=== PATIENT | female | born 1950 | race Caucasian/White ===

== ENCOUNTER → 2018-07-06 13:44 | Outpatient (CLI) | payer MEDICARE, OTHER, SELFPAY ==
--- NOTE | 2018-07-06 14:00 | XR_ITS ---
XR chest 2V HISTORY: Shortness of air, hypertension, current smoker ITS.REASON: . ORDERING PHYSICIAN: Tyson Rodriguez MD PATIENT AGE: 67 years COMPARISON: None FINDINGS: The cardiomediastinal silhouette and pulmonary vascularity are within normal limits. There is coarsening of the bronchovascular markings suggesting chronic peribronchial inflammatory change/smoking-related lung disease with some minimal interstitial markings noted in the left lung base. Coronary artery calcifications are noted. No effusions or infiltrates. No acute bony anomalies. IMPRESSION: COPD with mild prominence of interstitial markings in the lower lobes Coronary artery calcifications suggest coronary artery disease
[2018-07-06 14:23] LABS: Basophils # 0.1 K/mm3 (0-0.2); Basophils % 0.4 % (0.1-2.0); Eosinophils # 0.1 K/mm3 (0.0-0.4); Eosinophils % 0.9 % (0.1-12.0); Hematocrit 43.8 % (37.0-47.0); Hemoglobin 14.4 g/dL (12.2-16.2); Lymphocytes # 3.7 K/mm3 (0.7-4.5); Mean Corpuscular HGB Conc 32.8 g/dL (31.8-35.4); Mean Corpuscular Hemoglobin 28.4 pg (27.0-31.2); Mean Corpuscular Volume 86.7 fl (81-99); Mean Platelet Volume 6.7 fl (7.4-10.4); Monocytes # 0.7 K/mm3 (0.1-1.0); Monocytes % 5.1 % (1.7-9.3); Neutrophils # 9.2 K/mm3 (1.8-7.8); Neutrophils % 66.6 % (37.0-80.0); Platelet Count 309 K/mm3 (142-424); Red Blood Count 5.06 M/mm3 (4.20-5.40); Red Cell Distribution Width 14.7 % (11.5-17.5); White Blood Count 13.7 K/mm3 (4.8-10.8)
[2018-07-06 15:45] LABS: Blood Urea Nitrogen 11 mg/dL (7-18); Carbon Dioxide 27 mmol/L (21.0-32.0); Chloride 100 mmol/L (98-107); Creatinine,Serum 0.81 mg/dL (0.55-1.02); Estimated Glomerular Filt Rate 71 ml/min (>60); GFR (African American) 86 ML/MIN (>60); Sodium 138 mmol/L (136-145); Thyroid Stimulating Hormone 2.49 uIU/ml (0.358-3.740)
[2018-07-06 16:22] LABS: Glucose 141 mg/dL (74-106)
== END ==
PROVIDERS: Visit Provider Internal Medicine
DX: E11.9 Type 2 diabetes mellitus without complications (principal); E78.5 Hyperlipidemia, unspecified; I11.9 Hypertensive heart disease without heart failure; I20.9 Angina pectoris, unspecified; I44.7 Left bundle-branch block, unspecified; F17.200 Nicotine dependence, unspecified, uncomplicated; Z79.4 Long term (current) use of insulin
CPT/HCPCS: 36415; 71046; 80048; 84439; 84443; 85025

== ENCOUNTER → 2018-07-06 14:14 | Outpatient (CLI) | payer MEDICARE, OTHER, SELFPAY ==
--- NOTE | 2018-07-06 14:21 | CA_ITS ---
PROCEDURE: 2-D M-mode and color Doppler study INDICATIONS FOR THE TEST: Chest pain + COPD Heart Murmur Tobacco Smoking+ Palpitations Fatigue Syncope Edema Hypertension+Diabetes Mellitus+ Rheumatic Fever SOB+CHAO Obesity Hyperlipidemia+ Family History HD Additional History CAD,CHF PATIENT INFORMATION HEIGHT: 61 WEIGHT:156 GENDER: Female B/P:119/82 2-D/M-MODE INTERPRETATION: 2-D MEASUREMENTS OBSERVED VALUES IN CMS Right Ventricular Dimension (RVDd) 2.0 Interventricular Septum (Thickness)(IVsd) 0.7 Left Ventricular Internal Dimensions(LVIDd) 4.4 Left Ventricular Posterior Wall (Thickness)(LVPWd) 0.8 Aortic Root 2.3 Aortic Cusp Separation 1.8 Left Atrial Dimensions (LAD) 2.9 2D 1. Left atrium is mildly enlarged, left ventricle is normal size, there is mild concentric left ventricular hypertrophy, visually estimated ejection fraction 55% with no regional wall motion abnormality. 2. The right atrium and right ventricle are normal size and contractility. 3. The aortic valve is thickened and calcified leaflet continue to display good mobility. 4. The mitral and tricuspid valvular grossly normal. 5. The pulmonic valve is poorly visualized. 6. No significant pericardial effusion noted. DOPPLER INTERROGATION: Doppler interrogation of the aortic, mitral and tricuspid valvular presence of mild mitral and tricuspid regurgitation, tricuspid regurgitation jet velocity is inadequate for calculation of the right ventricular systolic pressure, Doppler evidence of impaired LV relaxation seen. Tissue Doppler is inconclusive CONCLUSION: 1. Mildly enlarged left atrium, normal left ventricular size, mild concentric left ventricular hypertrophy, visually estimated ejection fraction 55% with no regional wall motion abnormality, Doppler evidence of impaired LV relaxation seen, tissue Doppler is inconclusive. 2. Mild mitral and tricuspid regurgitation 3. No significant pericardial effusion noted.
== END ==
PROVIDERS: PCP Family Medicine; Visit Provider Internal Medicine
DX: E11.9 Type 2 diabetes mellitus without complications (principal); E78.5 Hyperlipidemia, unspecified; I11.9 Hypertensive heart disease without heart failure; I20.9 Angina pectoris, unspecified; I44.7 Left bundle-branch block, unspecified; Z79.4 Long term (current) use of insulin
CPT/HCPCS: 36415; 71046; 80048; 84439; 84443; 85025; 93306

== ENCOUNTER → 2019-06-28 11:11 | Outpatient (CLI) | payer MEDICARE, OTHER, SELFPAY ==
--- NOTE | 2019-06-28 11:13 | US_ITS ---
APPROVED REPORT Exam Type: Ankle to Brachial Index Financial Advisor Trainee: Jocelin Mcdonald RDCS Indications Claudication: Numbness/Tingling Current Smoker CAD Risk Factors Hyperlipidemia Diabetes Current Smoker Pressures/Indices Right Indices Left Indices Brachial 123.00 mmHg Brachial 124.00 mmHg Low Thigh 130.00 mmHg 1.05 Low Thigh 117.00 mmHg 0.94 Calf 131.00 mmHg 1.06 Calf 119.00 mmHg 0.96 Ankle(PT) 145.00 mmHg 1.17 Ankle(PT) 132.00 mmHg 1.06 Ankle(DP) 142.00 mmHg 1.15 Ankle(DP) 116.00 mmHg 0.94 Digit 77.00 mmHg 0.62 Digit 74.00 mmHg 0.60 Findings R ZEYAD 1.2 L ZEYAD 1.1 R TBI 0.6 L TBI 0.6 NORMAL PULSES NORMAL WAVEFORMS Conclusion No evidence significant arterial disease throughout the right and left lower extremities as evidenced by normal resting PVR waveforms and normal resting indices. Electronically signed by : Karri Gan MD 06/28/2019 20:24:02
--- NOTE | 2019-06-28 11:13 | CA_ITS ---
APPROVED REPORT EXAM: Comprehensive 2D, Doppler, and color-flow Echocardiogram Vending Service Technician: Nell Estrada CRT Ht: 5 ft 1 in Wt: 155lbs BSA: 1.69 BP: 119/82 mmHg Indications: htn, dm, smoker, sob, hld 2D Dimensions LVOT 1.83 cm (M/F) 1.5-2.5 M-Mode Dimensions RVDd 2.25 cm (0.9-2.6) LVDd 3.88 cm (3.5-5.7) LVDs 2.85 cm (3.5-5.7) IVSd 1.35 cm (0.6-1.1) PWd 0.47 cm (0.6-1.1) EF (Teich) 52.50% FS 26.50% EDV (Teich) 65.10 mL ESV (Teich) 30.90 mL LV Diastology E/A Ratio 0.70 Mitral Valve MV A Velocity 93.00 (40-130 cm/s) Left Ventricle Left atrium is mildly enlarged, left ventricle is normal size, mild concentric left ventricular hypertrophy, visually estimated ejection fraction 55% with no regional wall motion abnormality. Grade 1 diastolic dysfunction seen without tissue Doppler evidence of raise left atrial pressure. Right Ventricle Right atrium and right ventricular normal size and contractility. Aortic Valve Aortic valve is minimally thickened and fibrosed. There is no aortic stenosis or aortic insufficiency. Mitral Valve Mitral valve is grossly normal, there is mild mitral regurgitation. Tricuspid Valve Tricuspid valve is grossly normal, there is mild tricuspid regurgitation. Pulmonic Valve Pulmonic valve is poorly visualized. Great Vessels Aortic root is normal size. Pericardium No significant pericardial effusion noted. Conclusion 1. Mildly enlarged left atrium, normal left ventricular size, mild concentric left ventricular hypertrophy, visually estimated ejection fraction 55% with no regional wall motion abnormality, grade 1 diastolic dysfunction seen without tissue Doppler evidence of raise left atrial pressure. 2. Mild mitral and tricuspid regurgitation. 3. No significant pericardial effusion noted. Electronically signed by : Christopher Conn, 06/29/2019 07:00:36
--- NOTE | 2019-06-28 12:02 | XR_ITS ---
PROCEDURE: XR CHEST 2V CLINICAL HISTORY: chest pain,smoker Coronary artery disease, chest pain COMPARISON: CXR2V XR chest 2V from 07/06/2018 FINDINGS: The cardiomediastinal silhouette and pulmonary vascularity are within normal limits. Coarsened bronchovascular markings are noted which may be seen with smoking related lung disease. No lobar consolidation or collapse. No acute bony abnormalities. IMPRESSION: Coarsened bronchovascular markings otherwise negative Dictated by: Karri Gan MD 06/28/2019 18:26 Electronically signed by Karri Gan MD in [place] 06/28/2019 18:26
== END ==
PROVIDERS: Visit Provider Internal Medicine
DX: R06.00 Dyspnea, unspecified (principal); R06.01 Orthopnea; R06.02 Shortness of breath; I73.9 Peripheral vascular disease, unspecified; I11.9 Hypertensive heart disease without heart failure; I20.9 Angina pectoris, unspecified
CPT/HCPCS: 71046; 93306; 93923

== ENCOUNTER 2023-10-08 08:01 | Outpatient (CLI) | payer MEDICARE, OTHER, SELFPAY ==
--- NOTE | 2023-10-08 08:02 | CA_ITS ---
APPROVED REPORT EXAM: Comprehensive 2D, Doppler, and color-flow Echocardiogram Seam Steamer: Nell Estrada CRT Ht: 5 ft 1 in Wt: 164lbs BSA: 1.74 BP: 138/81 mmHg Indications: Chest Pain, Shortness of Breath, Diabetes, Fatigue, Hyperlipidemia, Hypertension/HDD, Smoker 2D Dimensions LA Volume 30.70 mL LA Volume Index 17.20 mL/m2 (M/F) 16-34 M-Mode Dimensions RVDd 1.97 cm (0.9-2.6) LA Diam 2.30 cm (1.9-4.0) LVDd 3.40 cm (3.5-5.7) LVDs 2.46 cm (3.5-5.7) IVSd 1.65 cm (0.6-1.1) PWd 0.78 cm (0.6-1.1) EF (Teich) 54.90% FS 27.60% EDV (Teich) 47.40 mL TAPSE 1.58 (<1.7) ESV (Teich) 21.40 mL LV Diastology MED A' 13.40 cm/s LAT A' 15.30 cm/s Aortic Valve AO Peak GR. 6.90 mmHg Pulmonary Valve PV Peak Velocity 158.0 (50-150 cm/s) Tricuspid Valve TR P. Velocity 134.00 cm/s RAP Estimate 10.00 mmHg RVSP 17.20 mmHg Left Ventricle The left ventricle is normal size. The left ventricular systolic function is normal. LV wall thickness. Septum is asynchronous. Transmitral Doppler flow pattern suggests impaired LV relaxation. LVEF is 55%. Right Ventricle The right ventricle is normal size. The right ventricular systolic function is normal. Atria The left atrium size is normal. The right atrium size is normal. There is no Doppler evidence of interatrial shunt. Aortic Valve The aortic valve is mildly thickened. There is no aortic valvular stenosis. No aortic regurgitation is present. Mitral Valve The mitral valve is normal in structure. No evidence of mitral valve stenosis. There is no mitral valve regurgitation noted. Tricuspid Valve The tricuspid valve leaflets are thin and pliable. Trace tricuspid regurgitation. There is insufficient TR jet to estimate RVSP. Pulmonic Valve The pulmonary valve is grossly normal in structure. Trace pulmonic regurgitation. Great Vessels The aortic root is normal in size. The ascending aorta is normal in size. IVC is normal in size and collapses >50% with inspiration. Pericardium There is no pericardial effusion. Other Information Study Quality: Fair Conclusion Normal biventricular systolic function. Asynchronous septum. No significant valvular stenosis or regurgitation. Electronically signed by : Rosy Dias MD 10/09/2023 22:38:05
== END 2023-10-08 23:59 | disposition home or self-care (01) ==
LOC: RT 08:02
PROVIDERS: Visit Provider Internal Medicine
DX: R06.02 Shortness of breath (principal); R06.00 Dyspnea, unspecified; I11.9 Hypertensive heart disease without heart failure; I25.10 Atherosclerotic heart disease of native coronary artery without angina pectoris; R06.01 Orthopnea; E78.49 Other hyperlipidemia; F17.210 Nicotine dependence, cigarettes, uncomplicated
CPT/HCPCS: 93306

== ENCOUNTER 2023-10-13 12:34 | Outpatient (CLI) | payer MEDICARE, OTHER, SELFPAY ==
[2023-10-13 13:00] LABS: Basophils # 0.1 K/mm3 (0-0.2); Basophils % 1.1 % (0.1-2.0); Eosinophils # 0.2 K/mm3 (0.0-0.4); Eosinophils % 1.5 % (0.1-12.0); Hemoglobin 14.6 g/dL (12.2-16.2); Lymphocytes # 4.2 K/mm3 (0.7-4.5); Mean Corpuscular HGB Conc 41.9 g/dL (31.8-35.4); Mean Corpuscular Hemoglobin 37.3 pg (27.0-31.2); Mean Corpuscular Volume 89.2 fl (81-99); Mean Platelet Volume 7.6 fl (7.4-10.4); Monocytes # 0.6 K/mm3 (0.1-1.0); Monocytes % 4.7 % (1.7-9.3); Neutrophils # 6.9 K/mm3 (1.8-7.8); Neutrophils % 57.7 % (37.0-80.0); Platelet Count 250 K/mm3 (142-424); Red Blood Count 3.92 M/mm3 (4.20-5.40); Red Cell Distribution Width 15.4 % (11.5-17.5)
[2023-10-13 13:40] LABS: Alanine Aminotransferase 36 U/L (12-78); Albumin Level 4.2 g/dl (3.5-5.0); Alkaline Phosphatase 154 U/L (38-126); Anion Gap 14.2 mEq/L (5-15); Aspartate Amino Transferase 27 U/L (14-36); Bilirubin,Direct 0.1 mg/dl (0.0-0.4); Bilirubin,Indirect 0.3 mg/dL (0.0-0.9); Bilirubin,Total 0.4 mg/dl (0.2-1.3); Bilirubin,Unconjugated 0.3 mg/dL (0.0-1.1); Blood Urea Nitrogen 9 mg/dl (7-17); Calcium 9.3 mg/dl (8.4-10.2); Carbon Dioxide 25 mmol/L (22.0-30.0); Chloride 104 mmol/L (98-107); Cholesterol 172 mg/dl (140-200); Estimated Glomerular Filt Rate 121 ml/min (>60); GFR (African American) 147 ML/MIN (>60); Glucose 121 mg/dl (74-100); HDL Cholesterol 43 mg/dl (40-60); Potassium 4.2 mmoL/L (3.5-5.1); Sodium 139 mmol/L (136-145); Total Protein,Serum 7.4 g/dl (6.3-8.2); Triglycerides 268 mg/dl (30-150); VLDL Cholesterol 54 mg/dL (0-40)
[2023-10-13 13:52] LABS: Direct LDL Cholesterol 99.46 mg/dL (100-129)
[2023-10-13 13:58] LABS: Free T4 (Free Thyroxine) 0.95 ng/dl (0.78-2.19)
[2023-10-13 14:10] LABS: Thyroid Stimulating Hormone 2.72 uIU/mL (0.465-4.68)
[2023-10-21 09:13] LABS: 1,25 Dihydroxy Vitamin D 66 pg/mL (.); 1,25-Dihydroxy, Vitamin D-2 34 pg/mL (.); 1,25-Dihydroxy, Vitamin D-3 32 pg/mL (.)
== END 2023-10-13 23:59 | disposition home or self-care (01) ==
LOC: LAB 12:35
PROVIDERS: Visit Provider Internal Medicine
DX: F17.200 Nicotine dependence, unspecified, uncomplicated (principal); I10 Essential (primary) hypertension; E11.9 Type 2 diabetes mellitus without complications; Z79.4 Long term (current) use of insulin; I25.10 Atherosclerotic heart disease of native coronary artery without angina pectoris; I11.9 Hypertensive heart disease without heart failure; R06.02 Shortness of breath; R06.00 Dyspnea, unspecified; R06.01 Orthopnea; E78.5 Hyperlipidemia, unspecified; K21.9 Gastro-esophageal reflux disease without esophagitis; E78.49 Other hyperlipidemia; E67.3 Hypervitaminosis D; Z79.899 Other long term (current) drug therapy
CPT/HCPCS: 36415; 80048; 80061; 80076; 82652; 84439; 84443; 85025

== ENCOUNTER 2023-10-29 11:48 | Outpatient (CLI) | payer MEDICARE, OTHER, SELFPAY ==
[2023-10-29] MEDS: INCLISIRAN SODIUM 284 MG/1.5 ML SYRINGE SQ (12:08)
[2023-10-29 12:24] VITALS: BP 160/79; PULSE 75; RESP 18; O2SAT 94
== END 2023-10-29 12:24 | disposition home or self-care (01) ==
LOC: INF 11:50
PROVIDERS: PCP Family Medicine; Visit Provider Internal Medicine
DX: E78.5 Hyperlipidemia, unspecified (principal)
CPT/HCPCS: 96372; J1306

== ENCOUNTER 2023-11-17 13:01 | Outpatient (CLI) | payer MEDICARE, OTHER, SELFPAY ==
--- NOTE | 2023-11-17 13:12 | XR_ITS ---
FINAL REPORT CLINICAL HISTORY: Foot Pain COMPARISON: None FINDINGS: RIGHT FOOT 3 views of the right foot were obtained. There is no acute fracture or dislocation. There are moderate to severe degenerative changes at the first MTP joint. Moderate hallux valgus deformity is noted. Soft tissues are unremarkable. IMPRESSION: Moderate to severe degenerative changes. Moderate hallux valgus deformity. Reviewed, Interpreted and Dictated by Gordo Lopez MD Transcribed by [facility] Authenticated and [facility]
--- NOTE | 2023-11-17 13:12 | XR_ITS ---
FINAL REPORT CLINICAL HISTORY: Foot Pain COMPARISON: None FINDINGS: LEFT FOOT Three views of the left foot demonstrate no acute fracture or dislocation. There are advanced degenerative changes of the first MTP joint. The soft tissues are unremarkable. IMPRESSION: Advanced degenerative changes. Reviewed, Interpreted and Dictated by Gordo Lopez MD Transcribed by [facility] Authenticated and [facility]
== END 2023-11-17 23:59 | disposition home or self-care (01) ==
LOC: RAD 13:03
PROVIDERS: PCP Family Medicine; Visit Provider Internal Medicine
DX: M79.671 Pain in right foot (principal); M79.672 Pain in left foot
CPT/HCPCS: 73630

== ENCOUNTER 2023-12-21 13:01 | Outpatient (CLI) | payer MEDICARE, OTHER, SELFPAY ==
--- NOTE | 2023-12-21 13:05 | US_ITS ---
FINAL REPORT CLINICAL HISTORY: DECREASED PEDAL PULSES,SMOKER,HTN,HLD,DM,CLAUDICATION,REST PAIN,CAD COMPARISON: 06/28/2019 FINDINGS: ANKLE-BRACHIAL PRESSURE INDICES Pressure indices are as follows: RIGHT LOWER EXTREMITY: Ankle-brachial pressure index: 1.2 Comments: Normal LEFT LOWER EXTREMITY: Ankle-brachial pressure index: 1.2 Comments: Normal IMPRESSION: No evidence of significant obstructive peripheral vascular disease of the lower extremities Reviewed, Interpreted and Dictated by Desirae Kirk MD Transcribed by [facility] Authenticated and [facility]
== END 2023-12-21 23:59 | disposition home or self-care (01) ==
LOC: RT 13:02
PROVIDERS: PCP Podiatrist; Visit Provider Podiatrist
DX: R09.89 Other specified symptoms and signs involving the circulatory and respiratory systems (principal)
CPT/HCPCS: 93923

== ENCOUNTER 2024-02-01 11:32 | Outpatient (CLI) | payer MEDICARE, OTHER, SELFPAY ==
[2024-02-01 11:49] VITALS: BP 119/71; PULSE 75; RESP 16; TEMP 36.4; O2SAT 95
[2024-02-01] MEDS: INCLISIRAN SODIUM 284 MG/1.5 ML SYRINGE SQ (11:49)
== END 2024-02-01 12:05 | disposition home or self-care (01) ==
LOC: INF 11:35
PROVIDERS: PCP Family Medicine; Visit Provider Internal Medicine
DX: E78.5 Hyperlipidemia, unspecified (principal)
CPT/HCPCS: 96372; J1306

== ENCOUNTER 2024-07-19 12:14 | Outpatient (CLI) | payer MEDICARE, SELFPAY ==
[2024-07-19 12:41] LABS: Basophils # 0.1 K/mm3 (0-0.2); Basophils % 0.4 % (0.1-2.0); Eosinophils # 0.1 K/mm3 (0.0-0.4); Hematocrit 43.5 % (37.0-47.0); Hemoglobin 14.5 g/dL (12.2-16.2); Lymphocytes # 3.8 K/mm3 (0.7-4.5); Lymphocytes % 33.7 % (10-50); Mean Corpuscular HGB Conc 33.3 g/dL (31.8-35.4); Mean Corpuscular Hemoglobin 28.4 pg (27.0-31.2); Mean Corpuscular Volume 85.3 fl (81-99); Mean Platelet Volume 8.6 fl (7.4-10.4); Monocytes # 0.6 K/mm3 (0.1-1.0); Monocytes % 5.6 % (1.7-9.3); Neutrophils # 6.7 K/mm3 (1.8-7.8); Platelet Count 403 K/mm3 (142-424); Red Cell Distribution Width 14.5 % (11.5-17.5); White Blood Count 11.4 K/mm3 (4.8-10.8)
[2024-07-19 13:05] LABS: Alanine Aminotransferase 24 U/L (12-78); Albumin Level 4.1 g/dl (3.5-5.0); Alkaline Phosphatase 155 U/L (38-126); Anion Gap 7.9 mEq/L (5-15); Aspartate Amino Transferase 22 U/L (14-36); Bilirubin,Direct 0.2 mg/dl (0.0-0.4); Bilirubin,Indirect 0.1 mg/dL (0.0-0.9); Bilirubin,Total 0.3 mg/dl (0.2-1.3); Bilirubin,Unconjugated 0.1 mg/dL (0.0-1.1); Blood Urea Nitrogen 6 mg/dl (7-17); Calcium 9.2 mg/dl (8.4-10.2); Carbon Dioxide 26 mmol/L (22.0-30.0); Chloride 105 mmol/L (98-107); Chol/HDL Ratio 2.8 (1-3.5); Cholesterol 123 mg/dl (140-200); Estimated Glomerular Filt Rate 98 ml/min (>60); GFR (African American) 119 ML/MIN (>60); Glucose 93 mg/dl (74-100); HDL Cholesterol 44 mg/dl (40-60); Hemoglobin A1C 5.9 % (4.0-6.0); Magnesium 1.7 mg/dl (1.6-2.3); Potassium 3.9 mmoL/L (3.5-5.1); Sodium 135 mmol/L (136-145); Triglycerides 133 mg/dl (30-150); VLDL Cholesterol 27 mg/dL (0-40)
[2024-07-19 13:16] LABS: Direct LDL Cholesterol 48.51 mg/dL (100-129)
[2024-07-19 13:22] LABS: Free T4 (Free Thyroxine) 0.99 ng/dl (0.78-2.19)
[2024-07-19 13:36] LABS: Thyroid Stimulating Hormone 1.93 uIU/mL (0.465-4.68)
== END 2024-07-19 23:59 | disposition home or self-care (01) ==
PROVIDERS: Visit Provider Nurse Practitioner
DX: I25.10 Atherosclerotic heart disease of native coronary artery without angina pectoris (principal); I44.7 Left bundle-branch block, unspecified; R53.1 Weakness; R07.89 Other chest pain; E11.40 Type 2 diabetes mellitus with diabetic neuropathy, unspecified; Z79.4 Long term (current) use of insulin; R06.02 Shortness of breath; R06.00 Dyspnea, unspecified; R06.01 Orthopnea; E78.49 Other hyperlipidemia; I10 Essential (primary) hypertension
CPT/HCPCS: 36415; 80048; 80061; 80076; 83036; 83735; 84439; 84443; 85025

== ENCOUNTER 2024-08-01 13:35 | Outpatient (CLI) | payer MEDICARE, SELFPAY ==
[2024-08-01 13:47] VITALS: BP 138/74; PULSE 76; RESP 18; O2SAT 97
[2024-08-01] MEDS: INCLISIRAN SODIUM 284 MG/1.5 ML SYRINGE SUBCUT (13:47)
== END 2024-08-01 13:47 | disposition home or self-care (01) ==
LOC: INF 13:37
PROVIDERS: Visit Provider Internal Medicine
DX: E78.5 Hyperlipidemia, unspecified (principal)
CPT/HCPCS: 96372; J1306

== ENCOUNTER 2024-08-09 11:11 | Outpatient (CLI) | payer MEDICARE, OTHER, SELFPAY ==
--- NOTE | 2024-08-09 | CA_ITS ---
APPROVED REPORT Exam: Pharmacologic Technologist: Vesta South Ht: 5 ft 1 in Wt: 134 lbs BSA: 1.59 m2 Stress Test Details Test: Lexiscan Reason for pharmacologic stress test: physical limitation. HR Resting HR: 69 bpm Max Heart Rate (APMHR): 148.758602 bpm Max HR Achieved: 89 bpm Target HR (85% APMHR): 125.655637 bpm % of APMHR: 60.14 Recovery HR: 86 bpm BP Resting BP: 122.0/71.0 mmHg Max BP: 125.0/68.0 mmHg Recovery BP: 131.0/71.0 mmHg ECG Resting ECG: SR Stress ECG Conclusion Symptoms: Chest pressure, Dyspnea. Arrhythmias/Ectopy: --- ST-T Changes: Less than 1mm ST depression. Conclusion: EKG unremarkable due to Lexiscan infusion. Electronically signed by : Rosy Dias MD 08/11/2024 12:27:02
--- NOTE | 2024-08-09 11:12 | NM_ITS ---
APPROVED REPORT Exam: Nuclear Stress Test Indication: Chest pain, SOB, Fatigue, DM, High cholesterol, Tobacco use, CAD Patient Location: Outpatient Stress Tech: eVsta Jorge [place] Tech:Tammie Pompa, ARRT, RT (R)(N) Ht: 5 ft 1 in Wt: 134 lbs Bra Size: 36C HR: 71 bpm BP: 122/71 mmHg BSA: 1.59 m2 TID: 1.05 BMI: 25.3 History: Chest pain, SOB, Fatigue, DM, High cholesterol, Tobacco use, CAD Procedure: Patient received 0.4 mg of intravenous Lexiscan, resting heart rate 71 bpm, resting blood pressure 122/71 mmHg, with Lexiscan maximum heart rate achieved was 100 bpm which is % of the maximum predicted heart rate and blood pressure was 135/68 mmHg. With Lexiscan, patient denied any complaint of chest pain. Cardiac Stress and Resting SPECT Images: Cardiac Stress and Resting SPECT images were obtained using technetium 99m Myoview 32.4 mCi stress and 10.39 mCi at rest. Resting and stress imaging in supine and prone positions demonstrate a medium sized, mild, partially reversible perfusion defect in the mid to distal anterior LV wall involving the anteroapical wall. Gated imaging demonstrates normal global and regional LV systolic function. LVEF is calculated at 64%. Conclusion: Medium sized, mild, partially reversible perfusion defect in the mid to distal anterior LV wall involving the anteroapical wall. Findings are suggestive of partial reversible ischemia. Gated imaging demonstrates normal global and regional LV systolic function. LVEF is calculated at 64%. Electronically signed by : Rosy Dias MD 08/11/2024 00:48:49
[2024-08-09] MEDS: SODIUM CHLORIDE 0.9% 10ML SYR (RAD ONLY) 10 ML IV ×2 (13:48)
[2024-08-09] MEDS: ISOTOPE MYOVIEW (PER STUDY) 1 DOSE IV (13:48)
[2024-08-09] MEDS: REGADENOSON 0.4MG/5ML SYRINGE 0.4 MG IV (13:48)
== END 2024-08-09 23:59 | disposition home or self-care (01) ==
LOC: RAD 11:12
PROVIDERS: Visit Provider Nurse Practitioner
DX: R07.9 Chest pain, unspecified (principal); R53.1 Weakness; E11.40 Type 2 diabetes mellitus with diabetic neuropathy, unspecified; Z79.4 Long term (current) use of insulin; R06.02 Shortness of breath; R06.00 Dyspnea, unspecified; R06.01 Orthopnea; E78.49 Other hyperlipidemia; E11.9 Type 2 diabetes mellitus without complications; I11.9 Hypertensive heart disease without heart failure
CPT/HCPCS: 78452; 93017; 93018; A9502; J2785

== ENCOUNTER 2024-08-18 11:22 | Day surgery (SDC) | payer MEDICARE, OTHER, SELFPAY ==
[2024-08-18 11:25] VITALS: BMI 24.7
[2024-08-18 11:45] LABS: Basophils # 0.1 K/mm3 (0-0.2); Basophils % 0.6 % (0.1-2.0); Eosinophils # 0.1 K/mm3 (0.0-0.4); Eosinophils % 0.8 % (0.1-12.0); Hematocrit 45.9 % (37.0-47.0); Hemoglobin 15.4 g/dL (12.2-16.2); Lymphocytes # 3.9 K/mm3 (0.7-4.5); Lymphocytes % 36.3 % (10-50); Mean Corpuscular HGB Conc 33.6 g/dL (31.8-35.4); Mean Corpuscular Hemoglobin 28.9 pg (27.0-31.2); Mean Corpuscular Volume 86.1 fl (81-99); Monocytes # 0.6 K/mm3 (0.1-1.0); Monocytes % 5.1 % (1.7-9.3); Neutrophils # 6.2 K/mm3 (1.8-7.8); Platelet Count 323 K/mm3 (142-424); Red Blood Count 5.33 M/mm3 (4.20-5.40); Red Cell Distribution Width 14.5 % (11.5-17.5); White Blood Count 10.8 K/mm3 (4.8-10.8)
[2024-08-18 11:54] LABS: Chloride 103 mmol/L (98-107); Potassium 4.9 mmoL/L (3.5-5.1); Sodium 139 mmol/L (136-145)
[2024-08-18 11:57] LABS: Blood Urea Nitrogen 7 mg/dl (7-17); Creatinine Clearance Estimated 48 mL/min (50-200); Estimated Glomerular Filt Rate 82 ml/min (>60); GFR (African American) 100 ML/MIN (>60)
[2024-08-18 11:58] LABS: Anion Gap 12.9 mEq/L (5-15); Calcium 9.9 mg/dl (8.4-10.2); Carbon Dioxide 28 mmol/L (22.0-30.0); Glucose 112 mg/dl (74-100)
== END 2024-08-18 14:30 | disposition home or self-care (01) ==
LOC: CATHLAB 11:24
PROVIDERS: Visit Provider Internal Medicine
DX: I25.10 Atherosclerotic heart disease of native coronary artery without angina pectoris (principal); Z53.09 Procedure and treatment not carried out because of other contraindication; Z79.899 Other long term (current) drug therapy; R07.9 Chest pain, unspecified; R94.31 Abnormal electrocardiogram [ECG] [EKG]
CPT/HCPCS: 36415; 80048; 85025

== ENCOUNTER 2024-08-31 07:10 | Day surgery (SDC) | payer MEDICARE, OTHER, SELFPAY ==
[2024-08-31] VITALS (13 sets, daily range): BP systolic 101–130; BP diastolic 62–79; PULSE 69–88; RESP 18–20; O2SAT 94–97; BMI 24.7
--- NOTE | 2024-08-31 07:03 | IR_ITS ---
APPROVED REPORT Patient Location: Outpatient Sheet Manufacturing Supervisor: Dave Redding, RT (R) PROCEDURES Left heart catheterization Left ventriculogram Selective coronary angiogram Drug-eluting stent deployment to the mid LAD INDICATION Coronary artery disease, Angina pectoris, Abnormal Myoview Informed consent was obtained prior to the procedure. COMPLICATIONS NONE Estimated Blood Loss: LESS THAN 10 ML TECHNIQUE One percent lidocaine used to anesthetize the right anterior aspect of the wrist. The right radial artery was accessed via the Seldinger technique. A 6 Tamazight sheath was placed in the right radial artery. 2.5 mg of Verapamil, 800 mcg of nitroglycerin, 1mg Lidocaine and 5000 U Heparin were given through the arterial sheath. The 6 Tamazight JL 3 guide catheter was also used to perform left heart catheterization, left ventriculogram and selective coronary angiogram. At the end of the diagnostic angiogram therapeutic heparin was administered given a therapeutic ACT and the guide catheters placed in left main artery followed by Choice PT extra-support wire placed down the LAD. A 2.75 x 22 mm Sylvester frontier stent was deployed in the mid LAD at 16 lesley reducing the stenosis to 0%. MONICA-3 flow was present before and after the procedure. Then the procedure the apparatus was removed the sheath was removed good hemostasis was achieved using TR banding patient was transferred to the postop putting in stable condition ANGIOGRAPHIC RESULTS The left main artery Short and normal The left anterior descending artery Proximally widely patent with stents in the proximal segment which extend into the mid segment. The stents are widely patent however distal to the stent there is a concentric 80 and 90% stenosis. 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 Dual antiplatelet therapy 2. Medical management for coronary disease 3. Aggressive risk factor modification 4. Avoidance of tobacco products 5. LDL less than 55 achieved with high intensity statin 6. Cardiac rehabilitation Electronically signed by : Tyson Rodriguez MD 08/31/2024 10:01:48
[2024-08-31 08:21] LABS: Basophils # 0.1 K/mm3 (0-0.2); Basophils % 0.4 % (0.1-2.0); Eosinophils # 0.1 K/mm3 (0.0-0.4); Hematocrit 45.4 % (37.0-47.0); Hemoglobin 15.2 g/dL (12.2-16.2); Lymphocytes # 4.5 K/mm3 (0.7-4.5); Lymphocytes % 31.2 % (10-50); Mean Corpuscular HGB Conc 33.5 g/dL (31.8-35.4); Mean Corpuscular Volume 86.5 fl (81-99); Mean Platelet Volume 9.2 fl (7.4-10.4); Monocytes # 0.9 K/mm3 (0.1-1.0); Monocytes % 5.9 % (1.7-9.3); Neutrophils # 8.9 K/mm3 (1.8-7.8); Neutrophils % 61.2 % (37.0-80.0); Platelet Count 307 K/mm3 (142-424); Red Blood Count 5.25 M/mm3 (4.20-5.40); Red Cell Distribution Width 14.7 % (11.5-17.5); White Blood Count 14.5 K/mm3 (4.8-10.8)
[2024-08-31 08:36] LABS: Chloride 101 mmol/L (98-107)
[2024-08-31 08:37] LABS: Potassium 3.8 mmoL/L (3.5-5.1); Sodium 137 mmol/L (136-145)
[2024-08-31 08:39] LABS: Blood Urea Nitrogen 8 mg/dl (7-17); Creatinine Clearance Estimated 48 mL/min (50-200); Estimated Glomerular Filt Rate 121 ml/min (>60); GFR (African American) 147 ML/MIN (>60)
[2024-08-31 08:40] LABS: Anion Gap 13.8 mEq/L (5-15); Calcium 9.4 mg/dl (8.4-10.2); Carbon Dioxide 26 mmol/L (22.0-30.0); Glucose 109 mg/dl (74-100)
[2024-08-31] MEDS: HEPARIN 1,000 UNITS/500ML NS (CATH LAB) 3000 UNIT IV (09:29)
[2024-08-31] MEDS: diphenhydrAMINE 50MG/ML VIAL 50 MG IV (09:29)
[2024-08-31] MEDS: NITROGLYCERIN 800MCG/8ML SYR (CATH LAB) 800 MCG IA (09:30)
[2024-08-31] MEDS: LIDOCAINE 1% 10ML MDV 10 ML IJ (09:30)
[2024-08-31] MEDS: 0.9 % SODIUM CHLORIDE 500 ML 25 ML IV (09:30)
[2024-08-31] MEDS: HEPARIN 1,000 UNITS/ML 10ML VIAL (CATH LAB) 5000 UNIT IV (09:30)
[2024-08-31] MEDS: VERAPAMIL 2.5MG/ML 2ML VIAL 2.5 MG IV (09:30)
[2024-08-31] MEDS: FENTANYL 100MCG/2ML VIAL 50 MCG IV (09:56)
[2024-08-31] MEDS: MIDAZOLAM HCL 1MG/ML 5ML VIAL 1 MG IV (09:56)
--- NOTE | 2024-08-31 12:48 | SUR.PHASEII ---
Pt not prescribed beta aileen or celi/arb d/t allergies
[2024-08-31] MEDS: IOPAMIDOL-370 (76%);100ML BOTTLE 90 ML IV (12:55)
[2024-08-31 13:50] LABS: CATHL Activated Clotting Time 352 SEC (74-125)
== END 2024-08-31 13:08 | disposition home or self-care (01) ==
PROVIDERS: PCP Family Medicine; Visit Provider Internal Medicine
DX: I25.118 Atherosclerotic heart disease of native coronary artery with other forms of angina pectoris (principal); R93.1 Abnormal findings on diagnostic imaging of heart and coronary circulation; I11.9 Hypertensive heart disease without heart failure; F17.210 Nicotine dependence, cigarettes, uncomplicated; I77.1 Stricture of artery; Z88.1 Allergy status to other antibiotic agents; Z95.5 Presence of coronary angioplasty implant and graft; Z88.8 Allergy status to other drugs, medicaments and biological substances; Z79.4 Long term (current) use of insulin; Z79.85 Long-term (current) use of injectable non-insulin antidiabetic drugs; Z79.899 Other long term (current) drug therapy
CPT/HCPCS: 80048; 85025; 85347; 92928; 93458; 99152; C1725; C1769; C1874; C9600; J1200; J1644; J3010; Q9967

== ENCOUNTER 2024-09-07 13:33 | Outpatient (CLI) | payer MEDICARE, OTHER, SELFPAY ==
--- OUTSIDE RECORDS SUMMARY | 2024-09-07 13:36 | XMS_ITS | Continuity of Care Document ---
Author Name [facility] Organization [facility] Care Team Providers Care Advertising Layout Worker Name Role Phone [facility] Unavailable Unavailable Problems Combined list of problems from [facility] and [facility] facilities. It does not include entries that were removed or entered in error. Problem Status Onset Date Problem Type Date of Resolution Comments Source Gastroesophageal Reflux Disorder Active 09/09/19 08 Condition [facility] Tetanus and Diphtheria Toxoids Inactive 06/16/19 08 Condition 08/31/2007 [facility] Influenza, virus vaccine Inactive 05/04/20 07 Condition 08/31/2007 [facility] ABDOMINAL PAIN Active Condition [facility] Abdominal Pain, Epigastric (ICD-9-CM 789.06) Active Condition [facility] Abdominal Pain, Generalized (ICD-9-CM 789.07) Active Condition [facility] 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 Active Condition [facility] Cholelithiasis * (ICD-9-CM 574.20) Active Condition [facility] Diarrhea * (ICD-9-CM 787.91) Active Condition [facility] Diverticulitis * (ICD-9-CM 562.11) Active Condition [facility] Generalized Anxiety Disorder * (ICD-9-CM 300.02) Active Condition [facility] Hepatomegaly * (ICD-9-CM 789.1) Active Condition [facility] Major Depressive Disorder, Recurrent, Moderate (DSM-IV 296.32/ICD-9-CM 296.32) Active Condition [facility] Nausea with Vomiting (ICD-9-CM 787.01) Active Condition [facility] Screening CA Breast Exam Other Active Condition [facility] Tobacco Dependence (ICD-9-CM 305.1) Active Condition [facility] Medications Combined list of outpatient medications from [facility] and [facility] facilities.Medications provided include 1) outpatient medications from the last 15 months, and 2) patient-reported medications. Medication Details Route Status Patient Instructions Prescription Expires Prescription Number Last Dispense Date Ordering Provider Order Date Order Qty Source ASPIRIN 81MG TAB,EC TAKE ONE TABLET BY MOUTH EVERY DAY ORAL ACTIVE BEKAL,YES HWANTH P 2006 [facility] NITROGLYCER IN(ETHEX) 0.4MG SL TAB DISSOLVE ONE TABLET UNDER THE TONGUE PRN SUBLIN GUAL ACTIVE BEKAL,YES HWANTH P 2006 [facility] RAMELTEON 8MG TAB TAKE ONE TABLET BY MOUTH DAILY AT BEDTIME NEEDED ORAL ACTIVE BEKAL,YES HWANTH P 2006 [facility] Immunizations Combined list of available immunizations from the Department [facility] and [facility] facilities. Immunization Series Date Given Administered By Site Reaction Lot Number CVX Code Drug Food Services Manager Status Comments Source TD(ADULT) UNSPECIFIED FORMULATION 2007 139 complet ed 06/16/07 [facility] FLU,3 YRS (HISTORICAL) 2006 88 complet ed [facility] Social History Combined list of available smoking, tobacco, and other social history from [facility] and [facility] facilities. Social History Type Response Date Comment Sourc e Tobacco smoking status NHIS CURRENT TOBACCO USER 10/28/2007 [facility] History of tobacco use TOBACCO OFFERED STOP SMOKING CLINIC 10/28/2007 [facility] History of tobacco use CURRENT TOBACCO USER 08/31/2007 [facility] History of tobacco use CURRENT TOBACCO USER 06/21/2007 [facility] History of tobacco use CURRENT TOBACCO USER 05/04/2007 [facility] History of tobacco use CURRENT TOBACCO USER 03/23/2007 [facility]
[2024-09-07 13:57] LABS: Basophils # 0.1 K/mm3 (0-0.2); Basophils % 0.6 % (0.1-2.0); Eosinophils # 0.1 K/mm3 (0.0-0.4); Eosinophils % 1.3 % (0.1-12.0); Hematocrit 44.6 % (37.0-47.0); Hemoglobin 14.8 g/dL (12.2-16.2); Lymphocytes # 4.1 K/mm3 (0.7-4.5); Lymphocytes % 38.4 % (10-50); Mean Corpuscular HGB Conc 33.2 g/dL (31.8-35.4); Mean Corpuscular Hemoglobin 28.7 pg (27.0-31.2); Mean Corpuscular Volume 86.4 fl (81-99); Mean Platelet Volume 9.1 fl (7.4-10.4); Monocytes # 0.5 K/mm3 (0.1-1.0); Monocytes % 4.4 % (1.7-9.3); Neutrophils # 5.8 K/mm3 (1.8-7.8); Neutrophils % 55.1 % (37.0-80.0); Nucleated Red Blood Cells # 0 10^3/uL; Nucleated Red Blood Cells % 0 %; Platelet Count 311 K/mm3 (142-424); Red Blood Count 5.16 M/mm3 (4.20-5.40); Red Cell Distribution Width 14.5 % (11.5-17.5); Red Cell Distribution Width-SD 46.4 fL; White Blood Count 10.6 K/mm3 (4.8-10.8)
[2024-09-07 14:39] LABS: Anion Gap 18.1 mEq/L (5-15); Blood Urea Nitrogen 5 mg/dl (7-17); Carbon Dioxide 24 mmol/L (22.0-30.0); Chloride 100 mmol/L (98-107); Estimated Glomerular Filt Rate 98 ml/min (>60); GFR (African American) 119 ML/MIN (>60); Glucose 141 mg/dl (74-100); Potassium 4.1 mmoL/L (3.5-5.1); Sodium 138 mmol/L (136-145)
== END 2024-09-07 23:59 | disposition home or self-care (01) ==
LOC: LAB 13:34
PROVIDERS: PCP Family Medicine; Visit Provider Internal Medicine
DX: I11.9 Hypertensive heart disease without heart failure (principal); I25.10 Atherosclerotic heart disease of native coronary artery without angina pectoris; Z95.5 Presence of coronary angioplasty implant and graft
CPT/HCPCS: 36415; 80048; 85025

== ENCOUNTER 2025-02-03 13:17 | Outpatient (CLI) | payer MEDICARE, OTHER, SELFPAY ==
[2025-02-03 13:30] VITALS: BP 126/66; PULSE 76; RESP 17; O2SAT 98
[2025-02-03] MEDS: INCLISIRAN SODIUM 284 MG/1.5 ML SYRINGE SUBCUT (13:30)
== END 2025-02-03 13:45 | disposition home or self-care (01) ==
LOC: INF 13:18
PROVIDERS: Visit Provider Internal Medicine
DX: R07.89 Other chest pain (principal)
CPT/HCPCS: 96372; J1306